=== PATIENT | male | born 1985 | race Caucasian/White ===

== ENCOUNTER → 2016-07-12 | Outpatient (CLI) | payer OTHER ==
[~2016-07-12] MED LIST: ALBU1AER9 INH; CLR10 PO; OMEG10007 PO; SNG10 PO; VITAMIN B PO
[2016-07-12 10:58] LABS: BASO % 0.5 %; BASO ABS # 0.03 K/uL (0-0.2); COMPLETE YES; EOS % 3.8 %; HEMATOCRIT 42.5 % (42-52); IG% 0.8 %; LYMPH % 28.9 %; LYMPH ABS # 1.83 K/uL (1.2-3.4); MEAN CELL VOLUME 85.9 fL (80-100); MEAN CORPUSCULAR HEMOGLOBIN 29.7 pg (25-34); MEAN CORPUSCULAR HGB CONC 34.6 g/dl (32-36); MEAN PLATELET VOLUME 10.9 fL (7.4-10.4); MONO % 8.4 %; NEUT % 57.6 %; PLATELET COUNT 231 K/uL (130-400); RED BLOOD COUNT 4.95 M/uL (4.7-6.1); WHITE BLOOD COUNT 6.33 K/uL (4.8-10.8)
[2016-07-12 11:12] LABS: PARTIAL THROMBOPLASTIN RATIO 1.2; PROTHROMBIN TIME (PATIENT) 10.4 SECONDS (9.0-12.0)
[2016-07-12 11:18] LABS: POTASSIUM 4.5 mmol/L (3.5-5.1)
== END | disposition home or self-care (01) ==
LOC: C.LAB 10:29
DX: Z01.818 Encounter for other preprocedural examination (principal)

== ENCOUNTER → 2016-07-25 | Day surgery (SDC) | payer OTHER ==
[2016-07-15 14:38] VITALS: Ht 162.6 cm; Wt 80.0 kg
[~2016-07-25] VITALS: Ht 162.6 cm; Wt 80.0 kg
[~2016-07-25] MED LIST changes: +ATROPINE SULFATE 0.1 MG/ML 5ML SYR IV PRN; +CEFAZOLIN 2000 MG/60 ML D5W IV SCH; +DEXAMETHASONE SOD INJ 4 MG/ML VIAL ONE; +EpHEDrine SULFATE INJ 50 MG/ML AMP IV PRN; +EpINEphrine INJ 1MG/ML AMP 1 MG/ML AMP ONE; +FENTANYL CITRATE INJ 50 MCG/1 ML 2 ML VIAL IV PRN; +FENTANYL CITRATE INJ 50 MCG/1 ML 2 ML VIAL ONE; +GLYCOPYRROLATE INJ 0.2 MG/ML VIAL ONE; +HYDROCODONE/ACETAMOPHEN 5/325MG TAB PO PRN; +LACTATED RINGER'S 1000ML 1,000 ML IV SCH; +LIDOCAINE 4% MPF SOAK 5 ML = 1 DOSE TOP ONE; +LIDOCAINE HCL 2% 2 ML VIAL (20MG/ML) ONE; +LIDOCAINE/EPINEPHRINE 1% INJ 50 ML VIAL ONE; +NEOSTIGMINE METHYLSULFATE 5 MG/5 ML SYR ONE; -OMEG10007 PO; +ONDANSETRON INJ 2 MG/ML 2 ML VIAL IV PRN; +ONDANSETRON INJ 2 MG/ML 2 ML VIAL ONE; +OXYMETAZOLINE HCL 0.05% NA SPR 15 ML BTL PRN; +OXYMETAZOLINE HCL 0.05% NA SPR 15 ML BTL SCH; +PROPOFOL IV EMULSION 10 MG/ML 20 ML VIAL IV ONE; +SUCCINYLCHOLINE CHLORIDE 20 MG/ML 10 ML VIAL IV ONE; -VITAMIN B PO
--- NOTE | 2016-07-25 08:32 | History & Physical Bridge - [place] ---
H&P Re-Evaluation Bridge Note: I have examined the patient, reviewed the History & Physical and in the interval since the performance of the History & Physical I have noted the following changes of clinical significance: No changes noted
--- NOTE | 2016-07-25 09:44 | [facility] Operative Report ---
Operative Report Operative Date July 25, 2016. Pre-Operative Diagnosis Septal Deviation, Turbinate Hypertrophy Post-Operative Diagnosis Same Procedure(s) Performed Septoplasty and Bilateral Inferior Turbinate Reduction Surgeon Dr. Chaney Slot Operations Director Surgeon(s) None Estimated Blood Loss 10 ml Findings 1. SEVERE L>R SEPTAL DEVIATION AND R>L INFERIOR TURBINATE HYPERTROPHY Specimens None I attest to the content of the Intraoperative Record and any orders documented therein. Any exceptions are noted below.
--- NOTE | 2016-07-25 09:45 | Discharge Instructions ---
Discharge Instructions Date of Service July 25, 2016. Admission Reason for Admission: Nasal Septal Deviation, Turbinate Hypertrophy Discharge Discharge Diagnosis / Problem: SAME Discharge Goals Goal(s): Therapeutic intervention Activity Recommendations Activity Limitations: as noted below 1. LIGHT ACTIVITY FOR 2WEEKS 2. NO DRIVING WHILE ON [place] 3. NO NOSE BLOWING FOR 2WEEKS . Current Hospital Diet Patient's current hospital diet: Discharge Diet Recommended Diet: Regular Diet Procedures Procedures Performed: Septoplasty and Bilateral Inferior Turbinate Reduction Pending Studies Studies pending at discharge: no Medical Emergencies . Who to Call and When: Medical Emergencies: If at any time you feel your situation is an emergency, please call 911 immediately. . Non-Emergent Contact Non-Emergency issues call your: Surgeon . . "Provider Documentation" section prepared by Adria Chaney. . VTE Core Measure Inpt VTE Proph given/why not?: SCD's
--- NOTE | 2016-07-25 10:05 | Anesthesia Progress Nt - [facility] ---
Anesthesia Post Op Note Date & Time July 25, 2016 at 10:05 Vital Signs Pain Intensity: 0 Vital Signs Past 12 Hours Date Time Temp Pulse Resp B/P Pulse Ox O2 Delivery O2 Flow Rate FiO2 07/25/16 09:40 36.2 103 16 166/96 100 Humidified Oxygen 6 Mask 07/25/16 07:23 36.8 76 20 126/85 96 Room Air Notes Mental Status: alert / awake / arousable, participated in evaluation Pt Amnestic to Procedure: Yes Nausea / Vomiting: adequately controlled Pain: adequately controlled Airway Patency, RR, SpO2: stable & adequate BP & HR: stable & adequate Hydration State: stable & adequate Anesthetic Complications: no major complications apparent
[2016-07-25 10:23] VITALS: TEMP 36.5
[2016-07-25 10:53] VITALS: BP 152/99; PULSE 68; O2SAT 100
--- NOTE | 2016-07-25 11:08 | OPERATIVE REPORT ---
DATE OF OPERATION: 07/25/2016 PREOPERATIVE DIAGNOSES: 1. Left greater than right septal deviation. 2. Right greater than left inferior turbinate hypertrophy. POSTOPERATIVE DIAGNOSES: 1. Left greater than right septal deviation. 2. Right greater than left inferior turbinate hypertrophy. PROCEDURES: 1. Septoplasty. 2. Bilateral inferior turbinate outfracture and turbinoplasty. SURGEON: Dr. Chaney. ANESTHESIA: General endotracheal. ESTIMATED BLOOD LOSS: 10 mL FINDINGS: 1. Severe caudal deflection of the septum to the right. 2. Severe left septal deviation. 3. Right greater than left inferior turbinate hypertrophy. SPECIMENS: None. COMPLICATIONS: None. INDICATIONS FOR THE PROCEDURE: The patient is a 30-year-old male with a history of left greater than right nasal airway obstruction, who was found to have left greater than right septal deviation and right greater than left inferior turbinate hypertrophy. He has not had any relief with antihistamines, nasal steroids, or other measures to control allergies. He presents for the above-mentioned procedures on an outpatient elective basis. DETAILS OF PROCEDURE: After informed consent had been obtained from the patient, the patient was wheeled to the operating room and placed on the operating table in the supine position. Monitors were placed after induction of general endotracheal anesthesia, the patient was prepped in the usual fashion for septoplasty. A total of 6 mL of 1% lidocaine with 1:100,000 epinephrine used to inject the nasal septum bilaterally, thereby performing hydrodissection of the mucoperichondrial and mucoperiosteal flaps. Of note, the patient had a severe caudal deflection of the septum off the maxillary crest to the right hand side and then a severe bowing of the septum to the left, causing near 100% obstruction on the left hand side. Lidocaine and epinephrine pledgets were then placed in bilateral nasal cavities and pressure applied. A #15 scalpel was then used to make a right hemitransfixion incision through which the right-sided mucoperichondrial and mucoperiosteal flap was elevated. A #15 scalpel was then used to incise the quadrangular cartilage with care to preserve a 1.5 cm dorsal and caudal strut, and then left-sided mucoperichondrial and mucoperiosteal flap was elevated through this cartilaginous incision. A Jacobo swivel knife was used to remove the deviated portion of the quadrangular cartilage which was severely angulated to the left hand side. Osteotome, mallet, and Adrianna forceps were then used to remove some of the bony septal spur impinging on the left airway posteriorly. The patient still had some caudal deflection of the septum to the right hand side. The cartilage that was remaining caudally was weakened using a scalpel and crosshatching techniques. The right hemitransfixion incision was closed with several simple interrupted 4-0 chromic sutures. Two half mattress columelloplasty sutures were placed using 2-0 chromic sutures. This resulted in straightening of the caudal septum from the right to the left hand side. Septum was found to be midline. A 4-0 plain gut suture on a Nasim needle was then used to perform a quilting stitch of the mucoperichondrial and mucoperiosteal flaps bilaterally to help prevent septal hematoma. A Alba elevator was then used to infracture and subsequently outfracture the inferior turbinates bilaterally. The inferior turbinates were injected with 1% lidocaine with 1:100,000 epinephrine. A 2.0 mm turbinate blade using powered instrumentation was then used to perform bilateral inferior turbinoplasties in a submucosal fashion. The nasal cavities and nasopharynx were then suctioned. An orogastric tube was placed and the stomach was suctioned free of air and stomach contents. This marked the end of the case. The patient tolerated the procedure well, there were no apparent complications. The patient was extubated and transferred to recovery room in stable condition. I attest to the content of the Intraoperative Record and any orders documented therein. Any exceptio ns are noted below.
== END | disposition home or self-care (01) ==
LOC: X.SURG 06:49
DX: J34.2 Deviated nasal septum (principal); J34.3 Hypertrophy of nasal turbinates; Z87.891 Personal history of nicotine dependence; Z82.49 Family history of ischemic heart disease and other diseases of the circulatory system; Z82.3 Family history of stroke; Z82.5 Family history of asthma and other chronic lower respiratory diseases